=== PATIENT | male | born 1975 | race Caucasian/White ===

== ENCOUNTER 2018-08-25 00:24 | Inpatient (IN) | payer OTHER ==
[2018-08-25 00:25] VITALS: BMI 33.2
--- NOTE | 2018-08-25 00:54 | ED PDOC ---
Arrival/HPI - General Chief Complaint: Male Genitourinary Time Seen by Provider: 08/25/18 00:27 Historian: Patient - History of Present Illness Narrative History of Present Illness (Text): 08/25/18 00:54 Ricky Lucas is a 43 year old male, whose past medical history includes schizophrenia, diabetes, and hypertension, who presents to the Emergency department complaining of auditory hallucinations. Patient states he has been hearing voices and notes there is a "spirit" telling him what to do. Patient notes he can not sleep and can not clean his house due to the voices. Patient also complaining of urinary frequency. Patient states he has been compliant with his medications. Patient denies any suicidal ideation, homicidal ideation, fever, chills, chest pain, shortness of breath, nausea, vomiting, diarrhea, urinary symptoms, back pain, neck pain, headache, dizziness, or any other complaints. Symptom Onset: Gradual Symptom Course: Unchanged Activities at Onset: Light Context: Home Past Medical History - Provider Review Nursing Documentation Reviewed: Yes - Infectious Disease Hx of Infectious Diseases: None - Tetanus Immunization Tetanus Immunization: Unknown - Past Medical History Past Medical History: No Previous - Cardiac Hx Hypertension: Yes - Pulmonary Hx Respiratory Disorders: No - Neurological Hx Neurological Disorder: No - HEENT Hx HEENT Disorder: No - Renal Hx Renal Disorder: No - Endocrine/Metabolic Hx Diabetes Mellitus Type 2: Yes - Hematological/Oncological Hx Blood Disorders: No - Integumentary Hx Dermatological Disorder: No - Musculoskeletal/Rheumatological Hx Musculoskeletal Disorders: No - Gastrointestinal Hx Gastrointestinal Disorders: No - Genitourinary/Gynecological Hx Genitourinary Disorders: No - Psychiatric Hx Schizophrenia: Yes Hx Substance Use: No (Pt denies) - Past Surgical History Past Surgical History: No Previous - Anesthesia Hx Anesthesia: No - Suicidal Assessment Feels Threatened In Home Enviroment: No Family/Social History - Physician Review Nursing Documentation Reviewed: Yes Family/Social History: Unknown Family HX Smoking Status: Heavy Smoker > 10 Cigarettes Daily Hx Alcohol Use: No (former) Hx Substance Use: No (Pt denies) Substance used: marijuana Hx Substance Use Treatment: No Allergies/Home Meds Allergies/Adverse Reactions: Allergies haloperidol [From Haldol] Allergy (Verified 08/25/18 00:50) RASH Penicillins Allergy (Verified 08/25/18 00:50) RASH Home Medications: Home Meds Medication Instructions Recorded Confirmed Risperidone [Risperdal] BID 07/11/15 07/11/15 metFORMIN [glucOPHAGE] 500 mg PO BID 07/11/15 07/11/15 Review of Systems - Physician Review All systems were reviewed & negative as marked: Yes - Review of Systems Constitutional: Normal. absent: Fevers Eyes: Normal ENT: Normal Respiratory: Normal. absent: SOB, Cough Cardiovascular: Normal. absent: Chest Pain Gastrointestinal: Normal. absent: Abdominal Pain, Diarrhea, Nausea, Vomiting Genitourinary Male: Frequency. absent: Hematuria Musculoskeletal: Normal. absent: Back Pain, Neck Pain Skin: Normal. absent: Rash Neurological: Normal. absent: Headache, Dizziness Endocrine: Normal Hemo/Lymphatic: Normal Psychiatric: Other (+hallucinations) Physical Exam Vital Signs Reviewed: Yes Vital Signs Temp Pulse Resp BP Pulse Ox 08/25/18 00:34 98.5 F 73 17 189/107 H 100 Temperature: Afebrile Blood Pressure: Hypertensive Pulse: Regular Respiratory Rate: Normal Appearance: Positive for: Well-Appearing, Non-Toxic, Comfortable Pain Distress: None Mental Status: Positive for: Alert and Oriented X 3 Finger Stick Blood Glucose: 306 - Systems Exam Head: Present: Atraumatic, Normocephalic Pupils: Present: PERRL Extroacular Muscles: Present: EOMI Conjunctiva: Present: Normal Mouth: Present: Moist Mucous Membranes Neck: Present: Normal Range of Motion Respiratory/Chest: Present: Clear to Auscultation, Good Air Exchange. No: Respiratory Distress, Accessory Muscle Use Cardiovascular: Present: Regular Rate and Rhythm, Normal S1, S2. No: Murmurs Abdomen: No: Tenderness, Distention, Peritoneal Signs Back: Present: Normal Inspection Upper Extremity: Present: Normal Inspection. No: Cyanosis, Edema Lower Extremity: Present: Normal Inspection. No: Edema Neurological: Present: GCS=15, CN II-XII Intact, Speech Normal Skin: Present: Warm, Dry, Normal Color. No: Rashes Psychiatric: Present: Alert, Oriented x 3, Normal Insight, Normal Concentration Medical Decision Making ED Course and Treatment: 08/25/18 00:54 Impression: 43 yea old male complaining of auditory hallucinations and urinary frequency. Plan: -- EKG -- Chest X-ray -- Labs, alcohol level -- UA, urine drug screen -- Reassess and disposition Progress Notes: Reviewed EKG, NSR at 82 bpm. Incomplete RBBB. Non-secific ST/T wave changes. 08/25/18 01:21 Chest X-ray reviewed, shows no acute processes. 08/25/18 04:37 Pt seen and evaluated PES sita Espinoza, who discussed case with pt's psychiatrist, Dr Gibson. Requests pt stay until the morning for [id number] evaluation with Dr. Vazquez. 08/25/18 07:[address] Shields, pending [id number] evaluation with Dr. Vazquez and disposition. - Lab Interpretations I have reviewed the lab results: Yes - RAD Interpretation Make Ready Mechanic: ED Physician - EKG Interpretation Interpreted by ED Physician: Yes Type: 12 lead EKG - Scribe Statement The provider has reviewed the documentation as recorded by the Deyviibchristina Gar Provider Scribe Attestation: All medical record entries made by the Scribe were at my direction and personally dictated by me. I have reviewed the chart and agree that the record accurately reflects my personal performance of the history, physical exam, medical decision making, and the department course for this patient. I have also personally directed, reviewed, and agree with the discharge instructions and disposition. Disposition/Present on Arrival - Present on Arrival Any Indicators Present on Arrival: No History of DVT/PE: No History of Uncontrolled Diabetes: No Urinary Catheter: No History of Decub. Ulcer: No History Surgical Site Infection Following: None - Disposition Have Diagnosis and Disposition been Completed?: No Diagnosis: Schizophrenia Disposition Time: 07:00 Condition: STABLE Referrals: Lenore Wetzel MD [Primary Care Provider] - Follow up with primary Forms: [employer] (Albanian)
[2018-08-25 01:22] LABS: ALB/GLOB RATIO 1.3 (1.1-1.8); ALBUMIN 4.2 g/dL (3.0-4.8); ALT/SGPT 19 U/L (7-56); AST/SGOT 17 U/L (17-59); BLOOD UREA NITROGEN 7 mg/dL (7-21); CALCIUM 9.2 mg/dL (8.4-10.5); GFR NON-AFRICAN AMERICAN > 60; HEMOGLOBIN 15.4 g/dL (14.0-18.0); MEAN CELL VOLUME 85.3 fl (80.0-105.0); MEAN CORPUSCULAR HEMOGLOBIN 30.3 pg (25.0-35.0); MEAN CORPUSCULAR HGB CONC 35.5 g/dl (31.0-37.0); MEAN PLATELET VOLUME 8.9 fl (7.0-11.0); RBC 5.09 10^6/uL (3.5-6.1); RED CELL DISTRIBUTION WIDTH 12.6 % (11.5-14.5); WHITE BLOOD COUNT 11.8 10^3/uL (4.5-11.0)
[2018-08-25 02:26] LABS: URINE BILIRUBIN NEGATIVE (NEGATIVE); URINE BLOOD NEGATIVE (NEGATIVE); URINE GLUCOSE (UA) >=1000 mg/dL (NEGATIVE); URINE LEUKOCYTE ESTERASE NEGATIVE Leu/uL (NEGATIVE); URINE PROTEIN 100 mg/dL (<30 mg/dL)
[2018-08-25 02:28] LABS: URINE COLOR YELLOW (YELLOW)
[2018-08-25 02:29] LABS: URINE APPEARANCE CLEAR (CLEAR)
[2018-08-25 02:31] LABS: URINE BACTERIA RARE (NEG); URINE EPITHELIAL CELLS 0 - 2 /hpf (0-5); URINE RBC 0 - 2 /hpf (0-2); URINE WBC 0 - 2 /hpf (0-6)
[2018-08-25 03:14] LABS: BARBITURATES, UR NEGATIVE (NEGATIVE); BENZODIAZEPINES, UR NEGATIVE (NEGATIVE); OPIATES, UR NEGATIVE (NEGATIVE); PHENCYCLIDINE, UR NEGATIVE (NEGATIVE)
--- NOTE | 2018-08-25 08:39 | RAD ---
Date of service: 08/25/2018 HISTORY: medical clearance COMPARISON: 08/24/2015 FINDINGS: LUNGS: No active pulmonary disease. PLEURA: No significant pleural effusion identified, no pneumothorax apparent. CARDIOVASCULAR: No aortic atherosclerotic calcification present. Normal cardiac size. No pulmonary vascular congestion. OSSEOUS STRUCTURES: No significant abnormalities. VISUALIZED UPPER ABDOMEN: Normal. OTHER FINDINGS: None. IMPRESSION: No active disease.
--- NOTE | 2018-08-25 08:42 | ED PDOC ---
Physical Exam Vital Signs Temp Pulse Resp BP Pulse Ox 08/25/18 07:36 78 18 172/100 H 99 08/25/18 06:45 88 18 150/80 99 08/25/18 03:15 82 17 152/89 H 99 08/25/18 00:34 98.5 F 73 17 189/107 H 100 Finger Stick Blood Glucose: 306 Medical Decision Making ED Course and Treatment: Signed out to me at change of shift pending bedside evaluation by Psych. Patient evaluated by Dr. Armstrong, patient will be admitted. - Lab Interpretations Lab Results: 08/25/18 01:05 08/25/18 01:05 Lab Results 08/25/18 02:08: Urine Opiates Screen Negative, Urine Methadone Screen Negative, Ur Barbiturates Screen Negative, Ur Phencyclidine Scrn Negative, Ur Amphetamines Screen Negative, U Benzodiazepines Scrn Negative, U Oth Cocaine Metabols Negative, U Cannabinoids Screen Negative 08/25/18 02:08: Urine Color Yellow, Urine Appearance Clear, Urine pH 6.0, Ur Specific [place] >= 1.030, Urine Protein 100 H, Urine Glucose (UA) >=1000, Urine Ketones Negative, Urine Blood Negative, Urine Nitrate Negative, Urine Bilirubin Negative, Urine Urobilinogen 2.0 H, Ur Leukocyte Esterase Negative, Urine RBC 0 - 2, Urine WBC 0 - 2, Ur Epithelial Cells 0 - 2, Urine Bacteria Rare 08/25/18 01:05: Alcohol, Quantitative < 10 08/25/18 01:05: WBC 11.8 H, RBC 5.09, Hgb 15.4, Hct 43.4, MCV 85.3, MCH 30.3, MCHC 35.5, RDW 12.6, Plt Count 334, MPV 8.9 08/25/18 01:05: Sodium 137, Potassium 3.7, Chloride 102, Carbon Dioxide 24, Anion Gap 15, BUN 7, Creatinine 0.5 L, Est GFR ( Amer) > 60, Est GFR (Non-Af Amer) > 60, Random Glucose 240 H, Calcium 9.2, Total Bilirubin 0.6, AST 17, ALT 19, Alkaline Phosphatase 118, Total Protein 7.4, Albumin 4.2, Globulin 3.2, Albumin/Globulin Ratio 1.3 - RAD Interpretation Radiology Orders: 08/25/18 00:55 CHEST PORTABLE [RAD] Stat Disposition/Present on Arrival - Present on Arrival Any Indicators Present on Arrival: No History of DVT/PE: No History of Uncontrolled Diabetes: No Urinary Catheter: No History of Decub. Ulcer: No History Surgical Site Infection Following: None - Disposition Have Diagnosis and Disposition been Completed?: Yes Diagnosis: Schizophrenia Disposition: HOSPITALIZED Disposition Time: 08:42 Patient Plan: Admission Patient Problems: Current Active Problems Problem Status Onset Schizophrenia Acute Condition: STABLE Referrals: Lenore Wetzel MD [Primary Care Provider] - Follow up with primary Forms: [employer] (Namibian)
[2018-08-25 10:21] VITALS: O2SAT 98
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
--- NOTE | 2018-08-25 12:28 | CARD ---
APPROVED REPORT Date of service: 08/25/2018 EKG Measurement Heart [id number] <Conclusion> Normal sinus rhythm Possible Left atrial enlargement Incomplete right bundle branch block Nonspecific T wave abnormality Abnormal ECG
--- NOTE | 2018-08-25 13:10 | PCM.BM ---
<Gail Natarajan - Last Filed: 08/25/18 13:07> Treatment Plan Problems - Problems identified on initial assessmt ineffective coping skills Date Initiated: 08/25/18 Time Initiated: 13:00 Assessment reference: NA Status: Active Priority: 1 auditory hallucination Date Initiated: 08/25/18 Time Initiated: 13:00 Assessment reference: NA Status: Active Priority: 2 medication adherence Date Initiated: 08/25/18 Time Initiated: 13:00 Assessment reference: NA Status: Active Priority: 3 social halucination Date Initiated: 08/25/18 Time Initiated: 13:00 Assessment reference: NA Status: Active Priority: 4 Treatment assets and liabiliti Patient Assests: adapts well, cooperative, ADL independent, cognitively intact Patient Liabilities: dietary restrictions, medical problems - Milieu Protocol Maintain good personal hygiene: daily Encourage regular showers, daily Remind patient to perform daily oral care, daily Assist patient to perform ADL's Maintain personal safety: every shift Educate patient to report safety concerns to staff, every shift Monitor environment for contraband/sharps Medication safety: Monitor for expected outcome, potential side effects: every shift, Assess barriers to learning: every shift, Assess readiness for medication education: every shift Discharge/Continuing Care - Education Needs Education Needs: Patient Medication, Patient Diagnosis/Disease Process, Patient Coping Skills, Patient Community resources, Patient Activities of Daily Living, Patient Nutrition, Patient Health Practices/Safety, Patient Personal Hygiene/Grooming, Patient Aftercare Safety Plan - Discharge Discharge Criteria: Tolerates medication w/o severe side effects, Free of Suicidal thoughts, Free of paranoid thoughts, Free of agitation, Normal sleep pattern, Ability to care for self, Reduction of target symptoms Discharge to:: Home <Dahiana Crooks - Last Filed: 08/26/18 15:11> Family Contact Family involvement: Famliy/SO not involved
[2018-08-25] MEDS ORDERED: Alum-Mag Hydrox-Simethicone Susp (30 mL) PO PRN (13:25)
[2018-08-25] MEDS ORDERED: Magnesium Hydroxide Susp 30 ml UD PO PRN (13:25)
--- NOTE | 2018-08-26 03:13 | CON ---
DATE: 08/25/2018 HISTORY OF PRESENT ILLNESS: Patient is a 43-year-old who was seen in office yesterday because of increased frequency of urination. He was found to have blood sugar 4+ in the urine and patient has been told on many occasions that he is diabetic and hypertensive and needs medications, but according to father, he does not want to start any medication. Patient states he was hearing voices and he was not feeling well himself. PAST MEDICAL HISTORY: Significant for: 1. Schizophrenia. 2. Hypertension. 3. Lcd-kxhzgdi-dtysnibhy diabetes. ALLERGIES: HE IS ALLERGIC TO HALOPERIDOL AND PENICILLIN. MEDICATIONS AT HOME: He was initially started on metformin 1000 twice a day, Prolixin, Crestor 2.5 mg daily, Risperdal 4 mg at bedtime, benztropine, and aspirin. He was also given prescription of lisinopril last night, but patient is very noncompliant with medication. SOCIAL HISTORY: He is a chain smoker and very heavy smoker, does not drink. He is single and lives with his parents. PHYSICAL EXAMINATION: GENERAL: He is awake and alert, able to communicate, answer simple questions. VITAL SIGNS: He is afebrile, pulse 71, respirations 16, and blood pressure 160/87. HEART: S1 and S2 audible. LUNGS: Bilateral fair airflow. No rhonchi or crackle. ABDOMEN: Soft and nontender. No rebound. No guarding. NEUROLOGIC: Patient is awake, alert, oriented, communicative, and ambulatory. LABORATORY DATA: WBC 11.8, hemoglobin 15.4, hematocrit 43.4, platelets 334,000. Chemistry: Sodium 137, potassium 3.7, chloride 102, CO2 of 24, BUN 7, creatinine 0.5, blood sugar 272. Urine shows protein and glucose more than 1000. Urine tox is negative. ASSESSMENT: 1. Schizophrenia. 2. Ykp-hrrualp-kzzjnyklh diabetes. 3. Hypertension. 4. Hyperlipidemia. PLAN: We will start patient on metformin 500 twice a day, started him on glimepiride and start him on lisinopril. Psych medication will be adjusted by psychiatrist. Lenore Wetzel MD [facility] # [id number]
[2018-08-26 07:06] VITALS: RESP 20
[2018-08-26 07:33] LABS: HDL CHOLESTEROL 32 mg/dL (29-60)
[2018-08-26 07:44] LABS: LDL CHOLESTEROL 206 mg/dL (0-129)
--- NOTE | 2018-08-26 14:47 | PN ---
DATE: 08/26/2018 SUBJECTIVE: The patient is 43 years old admitted because of hallucinations, hearing voices. PHYSICAL EXAMINATION: VITAL SIGNS: He is afebrile, pulse 82, respirations 20 and blood pressure 138/86. LUNGS: Bilateral fair airflow. No rhonchi or crackle. HEART: S1 and S2 audible. ABDOMEN: Soft and nontender. No rebound. No guarding. NEUROLOGICAL: He is awake, alert, oriented, communicative, ambulatory. LABORATORY DATA: Blood sugar is 286. ASSESSMENT: 1. Schizophrenia. 2. Daf-tnzhbbn-agkeqjfjj diabetes. 3. Hypertension. 4. Hyperlipidemia. PLAN: His blood pressure seems to be controlled. I will adjust his diabetes medication, increase his glimepiride from 2 mg to 4 mg since he cannot tolerate higher doses of metformin. We will add Lipitor. I will monitor his blood sugar and blood pressure closely. Lenore Wetzel MD
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
[2018-08-27 07:17] VITALS: BP 142/84; PULSE 91; TEMP 98.9
--- NOTE | 2018-08-27 18:16 | PN ---
DATE: 08/27/2018 SUBJECTIVE: The patient is a 43-year-old, seen and examined. The patient states he was hallucinating, and the voices were telling him not to eat, so he was not very regular with his food, and he does not take any medication, although he was diagnosed a couple of months ago with hypertension and goa-cwwvmdx-ysslqcbgy diabetes, so because of auditory hallucination he got bothered and came to ER for further evaluation. PHYSICAL EXAMINATION: GENERAL: Today, he is awake, alert, and oriented, able to communicate, ambulatory. VITAL SIGNS: He is afebrile. Pulse 91, respirations 20, blood pressure 142/84. LUNGS: Bilateral fair airflow. No rhonchi or crackle. HEART: S1 and S2 audible. ABDOMEN: Soft. Obese, nontender. No rebound. No guarding. NEUROLOGIC: The patient is awake, alert, oriented, communicative, and ambulatory. LABORATORY DATA: His blood sugar was 159. ASSESSMENT AND PLAN: 1. Paranoid schizophrenia. 2. Hot-ovmatfu-vevjijkrm diabetes. 3. Hypertension. 4. Hyperlipidemia. PLAN: Continue current medication. We will monitor blood sugar closely and make adjustment. Lenore Wetzel MD
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
== END 2018-08-27 12:33 | disposition home or self-care (01) | DRG 750 ==
LOC: ED 00:24 → ERH 08:39 → PSYC 11:03
PROVIDERS: ADMIT Psychiatry & Neurology Addiction Medicine; ATTEND Psychiatry & Neurology Addiction Medicine
DX: F20.3 Undifferentiated schizophrenia (principal); E11.9 Type 2 diabetes mellitus without complications; I10 Essential (primary) hypertension; F20.0 Paranoid schizophrenia; E78.5 Hyperlipidemia, unspecified; F17.210 Nicotine dependence, cigarettes, uncomplicated; Z79.84 Long term (current) use of oral hypoglycemic drugs; Z91.14 Patient's other noncompliance with medication regimen